=== PATIENT | male | born 1970 | race Caucasian/White ===

== ENCOUNTER → 2020-11-28 | Outpatient (CLI) | payer BC ==
[2020-11-28 13:23] LABS: Basophils % (A) 1 %; Eosinophils # (A) 0.1 k/uL (0-0.7); Eosinophils % (A) 2 %; HCT 50.5 % (39.0-53.0); HGB 16.6 gm/dL (13.0-17.5); Lymphocytes # (A) 1.3 k/uL (1.0-4.8); Lymphocytes % (A) 24 %; MCH 31.8 pg (25.0-35.0); MCHC 32.9 g/dL (31.0-37.0); MCV 96.7 fL (80.0-100.0); Mean Platelet Volume 8.7; Monocytes # (A) 0.4 k/uL (0-1.0); Monocytes % (A) 7 %; Neutrophils # (A) 3.7 k/uL (1.3-7.7); Neutrophils % (A) 65 %; Platelet Count 184 k/uL (150-450); RBC 5.23 m/uL (4.30-5.90); RDW 13.5 % (11.5-15.5); WBC 5.7 k/uL (3.8-10.6)
[2020-11-28 14:58] LABS: Erythrocyte Sedimentation Rate 2 mm/hr (0-15)
[2020-11-28 20:54] LABS: ALT 33 U/L (10-49); AST 22 U/L (14-35); Albumin/Globulin Ratio 2.53 (1.60-3.17); Alkaline Phosphatase 47 U/L (41-126); C Reactive Protein <0.4 mg/dL (0.0-0.8); Calcium 9.7 mg/dL (8.7-10.3); Carbon Dioxide 28.5 mmol/L (21.6-31.8); Chloride 105 mmol/L (96-109); Chol/HDL Ratio 4.11; Cholesterol 255 mg/dL (0-200); Globulin 1.9 g/dL (1.6-3.3); Glucose 95 mg/dL (70-110); LDL Cholesterol,Calculated 176.2 mg/dL (0.0-131.0); PSA Annual Screen 1.2 ng/mL (0.0-4.0); Potassium 4.6 mmol/L (3.5-5.5); Rheumatoid Factor, Qnt <4 IU/mL (0-15); Sodium 142 mmol/L (135-145); Total Protein 6.7 g/dL (6.2-8.2); Uric Acid 5.6 mg/dL (3.7-8.7)
[2020-11-28 20:55] LABS: Hemoglobin A1C 5.2 % (4.0-6.0)
== END | disposition home or self-care (01) ==
LOC: LABWHC1 12:06
PROVIDERS: ATTEND Family Medicine
DX: Z00.00 Encounter for general adult medical examination without abnormal findings (principal); M25.50 Pain in unspecified joint; Z12.5 Encounter for screening for malignant neoplasm of prostate
CPT/HCPCS: 80061; 80053; 85652; 84443; 84550; 85025; 86140; 86431; 86038; 83036; 36415; G0103

== ENCOUNTER → 2021-02-17 | Outpatient (CLI) | payer BC ==
--- NOTE | 2021-02-17 17:19 | CT ---
EXAMINATION TYPE: CT chest angio for PE DATE OF EXAM: 02/17/2021 COMPARISON: None HISTORY: Elevated d-dimer, difficulty breathing and fatigue. Hx of covid CT DLP: 420.2 mGycm Automated exposure control for dose reduction was used. CONTRAST: Performed with IV Contrast, patient injected with 100ml mL of Isovue 370. There are 3-D post processed images. The lungs are clear of consolidation. There is no evidence of a pulmonary mass. There is no pleural e ffusion. There is no pericardial effusion. The upper abdominal soft tissues are intact. There is 2 cm rounded hypodensity in the superior right lobe of the liver that could be a cyst. There is no mediastinal adenopathy. There are no hilar masses. Thoracic aorta is intact. There is no aneurysm or dissection. Ascending aorta measures 3.6 cm. There is normal contrast opacification of the pulmonary arteries. There are no filling defects. The t horacic spine is intact. There is no compression fracture. Sternum is intact. The ribs are intact. IMPRESSION: No evidence of pulmonary embolism. Negative exam. Hypodense rounded focus in the liver could be a cyst.
== END | disposition home or self-care (01) ==
LOC: RADCTMAIN 16:30
PROVIDERS: ATTEND Family Medicine
DX: R79.1 Abnormal coagulation profile (principal); R93.2 Abnormal findings on diagnostic imaging of liver and biliary tract; Z86.16 Personal history of COVID-19
CPT/HCPCS: 71275; Q9967

== ENCOUNTER → 2021-02-20 | Outpatient (CLI) | payer BC ==
--- NOTE | 2021-02-21 07:43 | ECHOF ---
Referral Reason:R55 syncope and collapse MEASUREMENTS -------- HEIGHT: 182.9 cm WEIGHT: 93.0 kg BP: RVIDd: 3.2 cm (< 3.3) IVSd: 1.1 cm (0.6 - 1.1) LVIDd: 4.3 cm (3.9 - 5.3) LVPWd: 1.1 cm (0.6 - 1.1) IVSs: 1.4 cm LVIDs: 2.9 cm LVPWs: 1.6 cm LA Diam: 4.1 cm (2.7 - 3.8) LAESV Index (A-L): 25.05 ml/m Ao Diam: 3.3 cm (2.0 - 3.7) AV Cusp: 2.6 cm (1.5 - 2.6) LA Diam: 4.2 cm (2.7 - 3.8) MV EXCURSION: 23.948 mm (> 18.000) MV EF SLOPE: 44 mm/s (70 - 150) EPSS: 0.3 cm MV E Erick: 0.46 m/s MV DecT: 346 ms MV A Erick: 0.66 m/s MV E/A Ratio: 0.71 RAP: 5.00 mmHg RVSP: 27.28 mmHg FINDINGS -------- Sinus rhythm. This was a technically good study. LV size, wall thickness and systolic function are normal, with an EF greater than 55%. The left olamide tricular size is normal. The right ventricle is normal in size. Normal LA size by volume 22+/-6 ml/m2. The right atrial size is normal. The aortic valve is trileaflet, and appears structurally normal. No aortic stenosis or regurgitation. Mild mitral regurgitation is present. Mild tricuspid regurgitation present. Right ventricular systolic pressure is normal at < 35 mmHg. There is no pulmonic regurgitation present. The aortic root size is normal. There is no pericardial effusion. CONCLUSIONS -------- 1. LV size, wall thickness and systolic function are normal, with an EF greater than 55%. 2. The left ventricular size is normal. 3. The right ventricle is normal in size. 4. Normal LA size by volume 22+/-6 ml/m2. 5. The right atrial size is normal. 6. Mild mitral regurgitation is present. 7. Mild tricuspid regurgitation present. 8. The aortic root size is normal. 9. There is no pericardial effusion. FLOOD CONTROL ENGINEER: Belen Doherty RDCS
== END | disposition home or self-care (01) ==
LOC: RADECHMAIN 13:52
PROVIDERS: ATTEND Family Medicine
DX: R55 Syncope and collapse (principal)
CPT/HCPCS: 93306

== ENCOUNTER 2021-03-24 09:07 | Day surgery (SDC) | payer BC ==
[2021-03-21 09:34] VITALS: BMI 27.8
[~2021-03-24 09:07] MED LIST: LACTATED RINGERS 1,000 ML IV SCH
[2021-03-24 09:42] VITALS: TEMP 97.1
[2021-03-24] MEDS ORDERED: PROPOFOL 10 MG/ML 20 ML VIAL IV ONE (10:06)
[2021-03-24 10:40] VITALS: RESP 16
--- NOTE | 2021-03-24 10:40 | P.PCN ---
Date of Procedure: 03/24/21 Description of Procedure: Brief history: Patient is a pleasant 51-year-old male presenting for outpatient EGD and colonoscopy for evaluation of GERD with esophagitis and screening for malignant neoplasm of the colon. Patient reports history of long-standing heartburn and gastroesophageal reflux disease. He treats his symptoms with Zegerid. No prior EGD. Last colonoscopy performed remotely over 20 years ago for unclear reasons. No family history of colon cancer. No change in bowel habits. Procedure performed: Esophagogastroduodenoscopy with biopsy Colonoscopy Estimated blood loss: Minimal. Preoperative diagnosis: Gastroesophageal reflux disease with esophagitis, screening for malignant neoplasm of the colon, last colonoscopy over 20 years ago Anesthesia: MAC Procedure: After informed consent was obtained from the patient was brought into the endoscopy unit and IV sedation was administered by anesthesia under continuous monitoring. Initially upper endoscopy was done. The Olympus GF 190 video endoscope was inserted into the mouth and esophagus intubated without any difficulty and was gradually advanced into the stomach and duodenum and carefully examined. The bulb and second part of the duodenum appeared normal, with biopsies taken. The scope was then withdrawn into the stomach adequately insufflated with air and upon careful examination the antrum and body, cardia and fundus appeared normal, except for some mild scattered erythema in the antrum and body suggestive of mild gastritis with biopsies of the antrum body taken. The scope was then withdrawn into the esophagus. The GE junction was located at 39 cm to the incisors. A small 1 cm hiatal hernia was noted. It appeared regular with no erythema erosions or ulcerations, with biopsies of the lower esophagus taken. Rest of the esophagus appeared normal. Patient tolerated the procedure well. At this time the patient continued to remain sedation. Initial digital rectal examination was normal. Olympus CF 190 video colonoscope was then inserted into the rectum and gradually advanced to the cecum without any difficulty. Careful examination was performed as the scope was gradually being withdrawn. The prep was excellent. The cecum, ascending colon, transverse colon, descending colon, sigmoid colon and rectum appeared normal. Retroflexion was performed in the rectum and no lesions were noted, with low-grade internal hemorrhoids noted. Patient tolerated the procedure well. Impression: 1. Mild gastritis. Biopsies of the duodenum, antrum and body and lower esophagus. 2. Normal-appearing colon from rectum to cecum with normal-appearing. Internal hemorrhoids. Recommendations: Findings of this examination were discussed with the patient as well as his family. Okay to resume diet. Okay to resume medications. Continue PPI therapy for symptoms of reflux. Recommend repeat colonoscopy in 10 years for screening for malignant neoplasm of the colon or sooner if any signs or symptoms which warrant further evaluation develop.
[2021-03-24 11:02] VITALS: BP 121/79; PULSE 69
== END 2021-03-24 11:35 | disposition home or self-care (01) ==
LOC: ORWHC2ENDO 09:07
PROVIDERS: ATTEND Internal Medicine
DX: K29.50 Unspecified chronic gastritis without bleeding (principal); K21.9 Gastro-esophageal reflux disease without esophagitis; K44.9 Diaphragmatic hernia without obstruction or gangrene; Z12.11 Encounter for screening for malignant neoplasm of colon; K64.8 Other hemorrhoids; I10 Essential (primary) hypertension; E78.5 Hyperlipidemia, unspecified; Z79.899 Other long term (current) drug therapy
CPT/HCPCS: 88305; 43239; J2704; G0121

== ENCOUNTER 2021-06-18 07:19 | Emergency (ER) | payer BC ==
[2021-06-18 07:23] VITALS: TEMP 97.9
[2021-06-18] MEDS ORDERED: KETOROLAC 15 MG/ML 1 ML VIAL IVP STA (07:35)
[2021-06-18] MEDS ORDERED: SODIUM CHLORIDE 0.9% 1,000 ML IV STA ×2 (07:35)
--- NOTE | 2021-06-18 07:42 | ED ---
Male Urogenital HPI - General Chief complaint: Urogenital Stated complaint: abd & back pain Time Seen by Provider: 06/18/21 07:22 Source: patient, RN notes reviewed Mode of arrival: ambulatory Limitations: no limitations - History of Present Illness Initial comments: This is a 51-year-old male with a benign past medical history other than a previous episode of kidney stone many years ago on the right side who states he had the sudden onset this morning is sharp 10/10 flank pain and radiates around to the from his abdomen. He states he felt a little off last night when he went to work he did have some diarrhea this morning. No fevers chills or sweats no dysuria no hematuria. No cough or phlegm production the patient states he can't get comfortable. No genital pain. No other complaints or modifying factors - Related Data Home Medications Medication Instructions Recorded Confirmed Meloxicam [Mobic] 15 mg PO DAILY 06/18/21 06/18/21 Sertraline [Zoloft] 100 mg PO DAILY 06/18/21 06/18/21 armodafiniL [Armodafinil] 250 mg PO DAILY PRN 06/18/21 06/18/21 valACYclovir HCL [Valtrex] 500 mg PO DAILY 06/18/21 06/18/21 Previous Rx's Medication Instructions Recorded Ibuprofen 800 mg PO Q6HR PRN #20 tablet 06/18/21 Tamsulosin [Flomax] 0.4 mg PO DAILY #7 cap 06/18/21 Allergies Allergy/AdvReac Type Severity Reaction Status Date / Time Fish Containing Products Allergy Severe Anaphylaxis Verified 06/18/21 07:58 [Fish] Review of Systems ROS Statement: Those systems with pertinent positive or pertinent negative responses have been documented in the HPI. ROS Other: All systems not noted in ROS Statement are negative. Past Medical History Past Medical History: GERD/Reflux, Hyperlipidemia, Hypertension Additional Past Medical History / Comment(s): Hx CoVid 09/27, kidney stone History of Any Multi-Drug Resistant Organisms: None Reported Past Surgical History: Orthopedic Surgery Additional Past Surgical History / Comment(s): Left shoulder surgery. Past Anesthesia/Blood Transfusion Reactions: No Reported Reaction, Motion Sickness Past Psychological History: No Psychological Hx Reported Smoking Status: Former smoker Past Alcohol Use History: Occasional Past Drug Use History: None Reported - Past Family History Mother Family Medical History: No Reported History General Exam - General Exam Comments Initial Comments: This a well-developed well-nourished awake alert oriented times 3 male Limitations: no limitations General appearance: alert, anxious Head exam: Present: atraumatic, normocephalic, normal inspection Eye exam: Present: normal appearance, PERRL, EOMI. Absent: scleral icterus, conjunctival injection, periorbital swelling ENT exam: Present: normal exam, mucous membranes moist Neck exam: Present: normal inspection. Absent: tenderness, meningismus, lymphadenopathy Respiratory exam: Present: normal lung sounds bilaterally. Absent: respiratory distress, wheezes, rales, rhonchi, stridor Cardiovascular Exam: Present: regular rate, normal rhythm, normal heart sounds. Absent: systolic murmur, diastolic murmur, rubs, gallop, clicks GI/Abdominal exam: Present: soft, normal bowel sounds. Absent: distended, tenderness, guarding, rebound, rigid, bruit, pulsatile mass Rectal exam: Present: deferred exam: Present: normal inspection, circumcision Extremities exam: Present: normal inspection, full ROM, normal capillary refill. Absent: tenderness, pedal edema, joint swelling, calf tenderness Back exam: Present: normal inspection, full ROM. Absent: tenderness, CVA tenderness (R), CVA tenderness (L) Neurological exam: Present: alert, oriented X3, CN II-XII intact Psychiatric exam: Present: normal affect, normal mood Skin exam: Present: warm, dry, intact, normal color. Absent: rash Course Vital Signs 06/18/21 06/18/21 07:21 11:23 Temperature 97.9 F Pulse Rate 61 60 Respiratory 18 20 Rate Blood Pressure 174/122 138/98 O2 Sat by Pulse 98 98 Oximetry - Reevaluation(s) Reevaluation #1: 06/18/21 08:15 Reevaluation patient reveals his pain is improved from a 10/10 to a 2/10 lab work and x-ray evaluation pending Medical Decision Making - Medical Decision Making The patient finally get some pain relief and will be discharged I did discuss case with Dr. Ivey, patient will be discharged to follow-up in 2 days in the office and return if any problems. Appropriate medication will be prescribed. - Lab Data Result diagrams: 06/18/21 07:50 06/18/21 07:50 Lab Results 06/18/21 06/18/21 06/18/21 Range/Units 07:48 07:50 07:50 WBC 7.7 (3.8-10.6) k/uL RBC 5.11 (4.30-5.90) m/uL Hgb 17.3 (13.0-17.5) gm/dL Hct 50.1 (39.0-53.0) % MCV 98.1 (80.0-100.0) fL MCH 33.9 (25.0-35.0) pg MCHC 34.5 (31.0-37.0) g/dL RDW 12.9 (11.5-15.5) % Plt Count 210 (150-450) k/uL MPV 8.6 Neutrophils % 66 % Lymphocytes % 22 % Monocytes % 7 % Eosinophils % 3 % Basophils % 1 % Neutrophils # 5.1 (1.3-7.7) k/uL Lymphocytes # 1.7 (1.0-4.8) k/uL Monocytes # 0.5 (0-1.0) k/uL Eosinophils # 0.2 (0-0.7) k/uL Basophils # 0.1 (0-0.2) k/uL Sodium 138 (137-145) mmol/L Potassium 4.7 (3.5-5.1) mmol/L Chloride 101 (98-107) mmol/L Carbon Dioxide 27 (22-30) mmol/L Anion Gap 10 mmol/L BUN 21 H (9-20) mg/dL Creatinine 1.07 (0.66-1.25) mg/dL Est GFR (CKD-EPI)AfAm >90 (>60 ml/min/1.73 sqM) Est GFR (CKD-EPI)NonAf 81 (>60 ml/min/1.73 sqM) Glucose 111 H (74-99) mg/dL Calcium 9.7 (8.4-10.2) mg/dL Total Bilirubin 0.6 (0.2-1.3) mg/dL AST 28 (17-59) U/L ALT 21 (4-49) U/L Alkaline Phosphatase 81 (38-126) U/L Creatine Kinase 83 (55-170) U/L Troponin I (0.000-0.034) ng/mL Total Protein 7.3 (6.3-8.2) g/dL Albumin 4.6 (3.5-5.0) g/dL Amylase 54 (30-110) U/L Lipase 127 (23-300) U/L Urine Color Yellow Urine Appearance Turbid (Clear) Urine pH 7.5 (5.0-8.0) Ur Specific [place] 1.018 (1.001-1.035) Urine Protein Negative (Negative) Urine Glucose (UA) Negative (Negative) Urine Ketones Negative (Negative) Urine Blood Trace H (Negative) Urine Nitrite Negative (Negative) Urine Bilirubin Negative (Negative) Urine Urobilinogen <2.0 (<2.0) mg/dL Ur Leukocyte Esterase Negative (Negative) Urine RBC 36 H (0-5) /hpf Urine WBC 1 (0-5) /hpf Amorphous Sediment Occasional H (None) /hpf 06/18/21 Range/Units 07:50 WBC (3.8-10.6) k/uL RBC (4.30-5.90) m/uL Hgb (13.0-17.5) gm/dL Hct (39.0-53.0) % MCV (80.0-100.0) fL MCH (25.0-35.0) pg MCHC (31.0-37.0) g/dL RDW (11.5-15.5) % Plt Count (150-450) k/uL MPV Neutrophils % % Lymphocytes % % Monocytes % % Eosinophils % % Basophils % % Neutrophils # (1.3-7.7) k/uL Lymphocytes # (1.0-4.8) k/uL Monocytes # (0-1.0) k/uL Eosinophils # (0-0.7) k/uL Basophils # (0-0.2) k/uL Sodium (137-145) mmol/L Potassium (3.5-5.1) mmol/L Chloride (98-107) mmol/L Carbon Dioxide (22-30) mmol/L Anion Gap mmol/L BUN (9-20) mg/dL Creatinine (0.66-1.25) mg/dL Est GFR (CKD-EPI)AfAm (>60 ml/min/1.73 sqM) Est GFR (CKD-EPI)NonAf (>60 ml/min/1.73 sqM) Glucose (74-99) mg/dL Calcium (8.4-10.2) mg/dL Total Bilirubin (0.2-1.3) mg/dL AST (17-59) U/L ALT (4-49) U/L Alkaline Phosphatase (38-126) U/L Creatine Kinase (55-170) U/L Troponin I <0.012 (0.000-0.034) ng/mL Total Protein (6.3-8.2) g/dL Albumin (3.5-5.0) g/dL Amylase (30-110) U/L Lipase (23-300) U/L Urine Color Urine Appearance (Clear) Urine pH (5.0-8.0) Ur Specific [place] (1.001-1.035) Urine Protein (Negative) Urine Glucose (UA) (Negative) Urine Ketones (Negative) Urine Blood (Negative) Urine Nitrite (Negative) Urine Bilirubin (Negative) Urine Urobilinogen (<2.0) mg/dL Ur Leukocyte Esterase (Negative) Urine RBC (0-5) /hpf Urine WBC (0-5) /hpf Amorphous Sediment (None) /hpf - Radiology Data Radiology results: report reviewed (Imaging reviewed KUB unremarkable with some pelvic calcifications noted CAT scan didn't show however a 5 mm ureterolithiasis in the distal left ureter with [id number] ureter and evidence of susy-nephric fluid collection.), image reviewed Disposition Clinical Impression: Renal colic on left side, Kidney stone on left side, Hematuria Disposition: HOME SELF-CARE Condition: Good Instructions (If sedation given, give patient instructions): Kidney Stones (ED), Renal Colic (ED), Flank Pain (ED), How to Strain Your Urine (ED) Additional Instructions: [place] 7.5/325 #12 with this vague 1 every 6 hours when necessary pain Prescriptions: Tamsulosin [Flomax] 0.4 mg PO DAILY #7 cap Ibuprofen 800 mg PO Q6HR PRN #20 tablet PRN Reason: Pain Is patient prescribed a controlled substance at d/c from ED?: No Referrals: Jayden Ontiveros MD [Primary Care Provider] - 1-2 days
[2021-06-18 08:00] LABS: Basophils # (A) 0.1 k/uL (0-0.2); Basophils % (A) 1 %; Eosinophils # (A) 0.2 k/uL (0-0.7); Eosinophils % (A) 3 %; HCT 50.1 % (39.0-53.0); HGB 17.3 gm/dL (13.0-17.5); Lymphocytes # (A) 1.7 k/uL (1.0-4.8); Lymphocytes % (A) 22 %; MCH 33.9 pg (25.0-35.0); MCHC 34.5 g/dL (31.0-37.0); MCV 98.1 fL (80.0-100.0); Mean Platelet Volume 8.6; Monocytes # (A) 0.5 k/uL (0-1.0); Monocytes % (A) 7 %; Neutrophils # (A) 5.1 k/uL (1.3-7.7); Neutrophils % (A) 66 %; Platelet Count 210 k/uL (150-450); RBC 5.11 m/uL (4.30-5.90); RDW 12.9 % (11.5-15.5); WBC 7.7 k/uL (3.8-10.6)
[2021-06-18 08:15] LABS: ALT 21 U/L (4-49); AST 28 U/L (17-59); African American GFR (CKD) >90 (>60 ml/min/1.73 sqM); Albumin 4.6 g/dL (3.5-5.0); Alkaline Phosphatase 81 U/L (38-126); Amylase 54 U/L (30-110); Anion Gap 10 mmol/L; Blood Urea Nitrogen 21 mg/dL (9-20); Calcium 9.7 mg/dL (8.4-10.2); Carbon Dioxide 27 mmol/L (22-30); Chloride 101 mmol/L (98-107); Creatine Kinase 83 U/L (55-170); Glucose 111 mg/dL (74-99); Lipase 127 U/L (23-300); Non-African American GFR(CKD) 81 (>60 ml/min/1.73 sqM); Potassium 4.7 mmol/L (3.5-5.1); Sodium 138 mmol/L (137-145); Total Bilirubin 0.6 mg/dL (0.2-1.3); Total Protein 7.3 g/dL (6.3-8.2)
--- NOTE | 2021-06-18 08:22 | XR ---
KUB HISTORY: Abdominal pain Frontal KUB submitted on 2 images, no comparisons Lung bases are clear. There is no evident bowel obstruction or pneumoperitoneum. There is a slight sp inal curvature. Probable phleboliths are noted within the pelvis. Difficult to exclude a distal left ureteral calculus. Bone mineralization is normal. IMPRESSION: Indeterminate calcifications in the pelvis. Nonobstructive bowel gas pattern.
[2021-06-18 08:27] LABS: Amorphous Sediment,Urine Occasional /hpf; Appearance,Urine Turbid (Clear); Bilirubin,Urine Negative (Negative); Blood,Urine Trace (Negative); Color,Urine Yellow; Glucose,Urine (UA) Negative (Negative); Ketones,Urine Negative (Negative); Leukocyte Esterase,Urine Negative (Negative); Nitrite,Urine Negative (Negative); PH, Urine 7.5 (5.0-8.0); Protein,Urine Negative (Negative); RBC,Urine 36 /hpf (0-5); Specific Gravity,Urine 1.018 (1.001-1.035); Urobilinogen,Urine <2.0 mg/dL (<2.0); WBC,Urine 1 /hpf (0-5)
[2021-06-18] MEDS ORDERED: HYDROmorphone 1 MG/ML 1 ML SYRINGE IVP STA (08:33)
[2021-06-18] MEDS ORDERED: MORPHINE SULFATE 4 MG/ML SYRINGE IVP STA ×2 (09:26→11:18)
[2021-06-18] MEDS ORDERED: TAMSULOSIN 0.4 MG CAP.ER.24H PO STA (09:27)
--- NOTE | 2021-06-18 09:43 | CT ---
EXAMINATION TYPE: CT abdomen pelvis wo con DATE OF EXAM: 06/18/2021 COMPARISON: KUB same date HISTORY: Flank pain, kidney stones suspected CT DLP: 725 mGycm Automated exposure control for dose reduction was used. TECHNIQUE: Helical acquisition of images from the lung bases through the pelvis. FINDINGS: Small hiatal hernia may be present. LUNG BASES: No significant abnormality is appreciated. AORTA: No significant abnormality is appreciataed. LIVER/GB: Low dense focus at the dome of the liver measures 2.1 cm and likely represents a cyst. PANCREAS: No significant abnormality is seen. SPLEEN: No significant abnormality is seen. ADRENALS: No significant abnormality is seen. KIDNEYS: There is left-sided hydronephrosis and hydroureter. Distal left ureteral calculus is present measuring partly 5 mm. There is perinephric fluid present possibly due to forniceal rupture. Right k idney is within normal limits. REPRODUCTIVE ORGANS: No significant abnormality is seen. URINARY BLADDER: Thickening of urinary bladder wall may be due to lack of distention.. BOWEL: No significant abnormality is seen. Appendix is normal. FREE AIR: No Free Air is visible. ASCITES: None visible. PELVIC ADENOPATHY: None visualized. RETROPERITONEAL ADENOPATHY: No Retroperitoneal Adenopathy visible. OSSEOUS STRUCTURES: Bilateral spondylolysis at L5.. IMPRESSION: DISTAL LEFT URETERAL CALCULUS IS OBSTRUCTIVE WITH HYDRONEPHROSIS. NONCONTRAST EXAM.
[2021-06-18 11:23] VITALS: RESP 20
[2021-06-18 12:36] VITALS: BP 152/98; PULSE 59
== END 2021-06-18 12:36 | disposition home or self-care (01) ==
LOC: EC 07:19
DX: N20.0 Calculus of kidney (principal); K21.9 Gastro-esophageal reflux disease without esophagitis; E78.5 Hyperlipidemia, unspecified; I10 Essential (primary) hypertension; Z86.16 Personal history of COVID-19; Z87.891 Personal history of nicotine dependence; Z91.013 Allergy to seafood
CPT/HCPCS: 99284; 96374; 96375 ×2; 96376; 96361; 36415; 80053; 82150; 82550; 83690; 84484; 85025; 81001; 74018; 74176; J2270; J1170; J1885

== ENCOUNTER 2021-06-21 09:45 | Emergency (ER) | payer BC ==
[2021-06-21 09:48] VITALS: RESP 18
[2021-06-21] MEDS ORDERED: KETOROLAC 15 MG/ML 1 ML VIAL IVP STA (09:54)
[2021-06-21] MEDS ORDERED: HYDROmorphone 0.5 MG/0.5 ML SYRINGE IVP STA (09:54)
[2021-06-21] MEDS ORDERED: SODIUM CHLORIDE 0.9% 1,000 ML IV STA (09:54)
[2021-06-21] MEDS ORDERED: ONDANSETRON 4 MG/2 ML VIAL IVP STA (09:56)
--- NOTE | 2021-06-21 09:57 | ED ---
General Adult HPI - General Chief complaint: Abdominal Pain Stated complaint: revisit -kidney stone Time Seen by Provider: 06/21/21 09:46 Source: patient Mode of arrival: wheelchair Limitations: no limitations - History of Present Illness Initial comments: Dictation was produced using [employer] dictation software. please excuse any grammatical, word or spelling errors. Chief Complaint: 51-year-old male presents to the emergency department for persistent sided flank pain History of Present Illness: 51-year-old male who presents today with severe left-sided flank pain. Patient was seen here 3 days ago. He was diagnosed with 5 mm left-sided nephrolithiasis with hydronephrosis. Patient was discharged then with pain medications. He was told to follow-up with urology. Patient followed-up with Dr. Marks in the office and patient is scheduled to have shockwave lithotripsy on Wednesday. Patient states that his symptoms were relat ively mild yesterday however today became much more severe. Patient complains of significant nausea. The ROS documented in this emergency department record has been reviewed and confirmed by me. Those systems with pertinent positive or negative responses have been documented in the HPI. All other systems are other negative and/or noncontributory. PHYSICAL EXAM: General Impression: Alert and oriented x3, acute distress secondary to pain HEENT: Normocephalic atraumatic, extra-ocular movements intact, pupils equal and reactive to light bilaterally, mucous membranes moist. Cardiovascular: Heart regular rate and rhythm Chest: Able to complete full sentences, no retractions, no tachypnea Abdomen: abdomen soft, non-tender, non-distended, no organomegaly Musculoskeletal: Pulses present and equal in all extremities, no peripheral edema Motor: no focal deficits noted Neurological: CN II-XII grossly intact, no focal motor or sensory deficits noted Skin: Intact with no visualized rashes Psych: Normal affect and mood ED course: 51-year-old male presents to emergency department with severe nephrolithiasis. Vital signs upon arrival are within acceptable limits. Laboratory evaluation obtained CBC unremarkable. Metabolic panel shows creatinine 1.43. Urinalysis shows 1+ ketones. X-ray unable to visualize a stone. No other acute processes noted. Patient given IV fluids and analgesics. He is observed in emergency department for 3 hours. He is reevaluated at bedside at 12:45 PM Klonopin stable medical condition. Discussed disposition options with patient. He would prefer to be discharge. Patient given prescription for by mouth analgesics, Colace and antiemetics. He is advised to follow-up with urologist. - Related Data Home Medications Medication Instructions Recorded Confirmed Meloxicam [Mobic] 15 mg PO DAILY 06/18/21 06/20/21 Sertraline [Zoloft] 100 mg PO DAILY 06/18/21 06/20/21 valACYclovir HCL [Valtrex] 500 mg PO DAILY 06/18/21 06/20/21 Previous Rx's Medication Instructions Recorded Ibuprofen 800 mg PO Q6HR PRN #20 tablet 06/18/21 Tamsulosin [Flomax] 0.4 mg PO DAILY #7 cap 06/18/21 Docusate [Colace] 100 mg PO DAILY 12 Days #12 capsule 06/21/21 Morphine Sulfate Ir [MSIR] 15 mg PO Q6HR PRN 3 Days #12 tab 06/21/21 Ondansetron Odt [Zofran Odt] 4 mg PO Q8HR PRN #12 tab 06/21/21 Allergies Allergy/AdvReac Type Severity Reaction Status Date / Time Fish Containing Products Allergy Severe Anaphylaxis Verified 06/21/21 09:48 [Fish] Review of Systems ROS Statement: Those systems with pertinent positive or pertinent negative responses have been documented in the HPI. ROS Other: All systems not noted in ROS Statement are negative. Past Medical History Past Medical History: GERD/Reflux, Hyperlipidemia, Hypertension Additional Past Medical History / Comment(s): Hx CoVid 09/27, kidney stone. History of Any Multi-Drug Resistant Organisms: None Reported Past Surgical History: Orthopedic Surgery Additional Past Surgical History / Comment(s): Left shoulder surgery. Past Anesthesia/Blood Transfusion Reactions: No Reported Reaction, Motion Sickness Past Psychological History: No Psychological Hx Reported Smoking Status: Former smoker Past Alcohol Use History: Occasional Past Drug Use History: None Reported - Past Family History Mother Family Medical History: No Reported History General Exam Limitations: no limitations Course Vital Signs 06/21/21 06/21/21 09:46 11:31 Temperature 97.8 F 98.4 F Pulse Rate 69 76 Respiratory 18 18 Rate Blood Pressure 175/124 141/89 O2 Sat by Pulse 98 95 Oximetry Medical Decision Making - Lab Data Result diagrams: 06/21/21 09:57 06/21/21 09:57 Lab Results 06/21/21 06/21/21 06/21/21 Range/Units 09:57 09:57 09:57 WBC 10.2 (3.8-10.6) k/uL RBC 4.76 (4.30-5.90) m/uL Hgb 15.9 (13.0-17.5) gm/dL Hct 46.4 (39.0-53.0) % MCV 97.4 (80.0-100.0) fL MCH 33.5 (25.0-35.0) pg MCHC 34.3 (31.0-37.0) g/dL RDW 13.2 (11.5-15.5) % Plt Count 191 (150-450) k/uL MPV 8.3 Neutrophils % 81 % Lymphocytes % 9 % Monocytes % 6 % Eosinophils % 1 % Basophils % 0 % Neutrophils # 8.3 H (1.3-7.7) k/uL Lymphocytes # 0.9 L (1.0-4.8) k/uL Monocytes # 0.6 (0-1.0) k/uL Eosinophils # 0.1 (0-0.7) k/uL Basophils # 0.0 (0-0.2) k/uL Sodium 137 (137-145) mmol/L Potassium 4.4 (3.5-5.1) mmol/L Chloride 104 (98-107) mmol/L Carbon Dioxide 26 (22-30) mmol/L Anion Gap 7 mmol/L BUN 18 (9-20) mg/dL Creatinine 1.43 H (0.66-1.25) mg/dL Est GFR (CKD-EPI)AfAm 66 (>60 ml/min/1.73 sqM) Est GFR (CKD-EPI)NonAf 57 (>60 ml/min/1.73 sqM) Glucose 125 H (74-99) mg/dL Calcium 9.7 (8.4-10.2) mg/dL Urine Color Yellow Urine Appearance Clear (Clear) Urine pH 5.0 (5.0-8.0) Ur Specific [place] 1.016 (1.001-1.035) Urine Protein Negative (Negative) Urine Glucose (UA) Negative (Negative) Urine Ketones 1+ H (Negative) Urine Blood Moderate H (Negative) Urine Nitrite Negative (Negative) Urine Bilirubin Negative (Negative) Urine Urobilinogen <2.0 (<2.0) mg/dL Ur Leukocyte Esterase Trace H (Negative) Urine RBC 5 (0-5) /hpf Urine WBC 4 (0-5) /hpf Urine Mucus Rare H (None) /hpf Disposition Clinical Impression: Kidney stone Disposition: HOME SELF-CARE Condition: Fair Instructions (If sedation given, give patient instructions): Kidney Stones (ED) Prescriptions: Docusate [Colace] 100 mg PO DAILY 12 Days #12 capsule Morphine Sulfate Ir [MSIR] 15 mg PO Q6HR PRN 3 Days #12 tab PRN Reason: Severe Pain Ondansetron Odt [Zofran Odt] 4 mg PO Q8HR PRN #12 tab PRN Reason: Nausea Is patient prescribed a controlled substance at d/c from ED?: Yes If prescribed controlled substance>3 days was MAPS reviewed?: Prescribed <3 Days Referrals: Santiago Marks MD [STAFF PHYSICIAN] - 1-2 days
[2021-06-21] MEDS ORDERED: MORPHINE SULFATE 4 MG/ML SYRINGE IVP STA (10:04)
[2021-06-21 10:21] LABS: Basophils % (A) 0 %; Eosinophils # (A) 0.1 k/uL (0-0.7); Eosinophils % (A) 1 %; HCT 46.4 % (39.0-53.0); HGB 15.9 gm/dL (13.0-17.5); Lymphocytes # (A) 0.9 k/uL (1.0-4.8); Lymphocytes % (A) 9 %; MCH 33.5 pg (25.0-35.0); MCHC 34.3 g/dL (31.0-37.0); MCV 97.4 fL (80.0-100.0); Mean Platelet Volume 8.3; Monocytes # (A) 0.6 k/uL (0-1.0); Monocytes % (A) 6 %; Neutrophils # (A) 8.3 k/uL (1.3-7.7); Neutrophils % (A) 81 %; Platelet Count 191 k/uL (150-450); RBC 4.76 m/uL (4.30-5.90); RDW 13.2 % (11.5-15.5); WBC 10.2 k/uL (3.8-10.6)
[2021-06-21 10:31] LABS: Calcium 9.7 mg/dL (8.4-10.2); Potassium 4.4 mmol/L (3.5-5.1)
--- NOTE | 2021-06-21 10:35 | XR ---
EXAMINATION TYPE: XR abdomen 1V DATE OF EXAM: 06/21/2021 Comparison: 06/18/2021 Clinical History: 51 year-old male left flank pain, kidney stone Findings: Nonobstructive bowel gas pattern. No evidence for free air. Mild stool burden. The 5 mm distal left u reteral calculus seen on recent CT is not radiographically apparent. Some platelets in the right side of the pelvis. Impression: The 5 mm distal left ureteral calculus seen on the 06/18/2021 CT is not radiographically apparent. Alan e phleboliths in the right side of the pelvis.
[2021-06-21 11:33] VITALS: TEMP 98.4
[2021-06-21 12:38] LABS: Appearance,Urine Clear (Clear); Bilirubin,Urine Negative (Negative); Blood,Urine Moderate (Negative); Color,Urine Yellow; Glucose,Urine (UA) Negative (Negative); Ketones,Urine 1+ (Negative); Leukocyte Esterase,Urine Trace (Negative); Mucus,Urine Rare /hpf; Nitrite,Urine Negative (Negative); Protein,Urine Negative (Negative); RBC,Urine 5 /hpf (0-5); Specific Gravity,Urine 1.016 (1.001-1.035); Urobilinogen,Urine <2.0 mg/dL (<2.0); WBC,Urine 4 /hpf (0-5)
[2021-06-21 13:03] VITALS: BP 138/70; PULSE 71
== END 2021-06-21 12:50 | disposition home or self-care (01) ==
LOC: EC 09:45
DX: N20.0 Calculus of kidney (principal); I10 Essential (primary) hypertension; E78.5 Hyperlipidemia, unspecified; K21.9 Gastro-esophageal reflux disease without esophagitis; Z79.1 Long term (current) use of non-steroidal anti-inflammatories (NSAID); Z79.899 Other long term (current) drug therapy; Z87.891 Personal history of nicotine dependence
CPT/HCPCS: 36415; 80048; 85025; 81001; 74018; 96374; 96375 ×2; 96361; 99284; J2270; J2405; J1885

== ENCOUNTER 2021-06-23 09:43 | Day surgery (SDC) | payer BC ==
[2021-06-20 12:26] VITALS: BMI 27.5
--- NOTE | 2021-06-23 09:08 | P.HPIHPCON ---
History of Present Illness H&P Date: 06/23/21 Chief Complaint: Left flank pain This is a 51-year-old male with history of 5 mm left-sided distal ureteral stone. He is symptomatic from his stone. Discussed with him the option of ESWL versus ureteroscopy. He agreed to proceed with ESWL. Discussed the risk which includes but not limited to bleeding, infection, discussed if the stone cannot be visualized on fluoroscopy and then we may not be able to perform the procedure, at that time he will require ureteroscopy. He understood all the risk and agreed to proceed with left ESWL Consent for Procedure: I have explained the operation/procedure to the patient, including the risks, benefits, side effects, alternative therapies (including not receiving the proposed treatment or service), the likelihood of the patient achieving his/her goals, and potential recuperation problems for the procedure/sedation/analgesia, as well as any blood products, if indicated. I also explained to the patient the risks, benefits and side effects of the alternatives, as well as the risks related to not receiving the proposed procedure, care, treatment, or services. Past Medical History Past Medical History: GERD/Reflux, Hyperlipidemia, Hypertension Additional Past Medical History / Comment(s): Hx CoVid 09/27, kidney stone. History of Any Multi-Drug Resistant Organisms: None Reported Past Surgical History: Orthopedic Surgery Additional Past Surgical History / Comment(s): Left shoulder surgery. Past Anesthesia/Blood Transfusion Reactions: No Reported Reaction, Motion Sickness Past Psychological History: No Psychological Hx Reported Smoking Status: Former smoker Past Alcohol Use History: Occasional Additional Past Alcohol Use History / Comment(s): Quit smoking 24 yrs ago. Past Drug Use History: None Reported - Past Family History Mother Family Medical History: No Reported History Medications and Allergies Home Medications Medication Instructions Recorded Confirmed Type Ibuprofen 800 mg PO Q6HR PRN #20 tablet 06/18/21 06/20/21 Rx Meloxicam [Mobic] 15 mg PO DAILY 06/18/21 06/20/21 History Sertraline [Zoloft] 100 mg PO DAILY 06/18/21 06/20/21 History Tamsulosin [Flomax] 0.4 mg PO DAILY #7 cap 06/18/21 06/20/21 Rx valACYclovir HCL [Valtrex] 500 mg PO DAILY 06/18/21 06/20/21 History Docusate [Colace] 100 mg PO DAILY 12 Days #12 capsule 06/21/21 Rx Morphine Sulfate Ir [MSIR] 15 mg PO Q6HR PRN 3 Days #12 tab 06/21/21 Rx Ondansetron Odt [Zofran Odt] 4 mg PO Q8HR PRN #12 tab 06/21/21 Rx Allergies Allergy/AdvReac Type Severity Reaction Status Date / Time Fish Containing Products Allergy Severe Anaphylaxis Verified 06/21/21 09:48 [Fish] Surgical - Exam - General no distress, moderate pain - ENT normal nares, normal mucosa - Respiratory normal expansion, normal respiratory effort - Psychiatric oriented to time, oriented to person, oriented to place Assessment and Plan Assessment: 51-year-old male with history of distal left ureteral stone Or for left-sided ESWL
[~2021-06-23 09:43] MED LIST changes: +LIDOCAINE 1% (10MG/ML) FOR IV START INTRADERMA PRN
--- NOTE | 2021-06-23 10:19 | XR ---
EXAMINATION TYPE: XR KUB DATE OF EXAM: 06/23/2021 HISTORY: Pain Comparison: 06/18/2021 Single KUB is submitted for interpretation. Findings: Right renal calculi: None Visualized. Right ureteral calculi: None Visualized. Left renal calculi: None Visualized. Left ureteral calculi: None Visualized. Pelvic calcifications: None Visualized. Bowel gas pattern is unremarkable. No free air. No mass effects. IMPRESSION: 1. No visible calculi identified at this time.
[2021-06-23 10:25] VITALS: TEMP 97.7
[2021-06-23] MEDS ORDERED: LACTATED RINGERS 1,000 ML IV ONE (10:33)
[2021-06-23] MEDS ORDERED: ONDANSETRON 4 MG/2 ML VIAL ONE (10:34)
[2021-06-23] MEDS ORDERED: ONDANSETRON 4 MG/2 ML VIAL IVP ONE (10:36)
[2021-06-23] MEDS ORDERED: ceFAZolin 1,000 MG VIAL ONE (11:08)
[2021-06-23] MEDS ORDERED: MIDAZOLAM 2 MG/2 ML VIAL ONE (11:08)
[2021-06-23] MEDS ORDERED: PROPOFOL 10 MG/ML 20 ML VIAL IV ONE (11:08)
[2021-06-23] MEDS ORDERED: SODIUM CHLORIDE 0.9% 100 ML BAG ONE (11:08)
[2021-06-23] MEDS ORDERED: fentaNYL (PF) 50 MCG/ML 2 ML AMP ONE (11:08)
--- NOTE | 2021-06-23 11:50 | P.OP ---
Date of Procedure: 06/23/21 Preoperative Diagnosis: Left ureteral stone Postoperative Diagnosis: Same Procedure(s) Performed: left ESWL Implants: none Anesthesia: MAC Surgeon: Santiago Marks Estimated Blood Loss (ml): 0 Pathology: none sent Condition: stable Disposition: PACU Indications for Procedure: This is a 51-year-old male with history of 5 mm left-sided distal ureteral stone. He is symptomatic from his stone. Discussed with him the option of ESWL versus ureteroscopy. He agreed to proceed with ESWL. Discussed the risk which includes but not limited to bleeding, infection, discussed if the stone cannot be visualized on fluoroscopy and then we may not be able to perform the procedure, at that time he will require ureteroscopy. He understood all the risk and agreed to proceed with left ESWL Operative Findings: Left distal stone Description of Procedure: The patient was taken to the operating room and placed on the Dornier Compact Delta II lithotripter in the supine position. The calculus was seen on biplanar fluoroscopy. Once the patient was properly positioned and sedated, lithotripsy was performed. The energy level was gradually increased per protocol, to an energy level of 6. A total of 3000 shocks were given at a rate of 80 shocks per minute, which was subsquently incresed to 100. Fluoroscopy was utilized at a minimum to ensure proper positioning and determine the treatment status. The calculus changed in appearance, there was good fragmentation. The patient tolerated the procedure well was taken to the recovery room in stable condition. Instructions were given to strain the urine, and the patient will follow-up within one week.
[2021-06-23 12:00] VITALS: RESP 16
[2021-06-23 12:28] VITALS: BP 147/81; PULSE 55
== END 2021-06-23 13:06 | disposition home or self-care (01) ==
LOC: ORWHC2ENDO 09:43
PROVIDERS: ATTEND Urology
DX: N20.1 Calculus of ureter (principal); I10 Essential (primary) hypertension; E78.5 Hyperlipidemia, unspecified; K21.9 Gastro-esophageal reflux disease without esophagitis
CPT/HCPCS: 50590; 82365; 74018; J2250; J2405; J0690; J3010; J2704

== ENCOUNTER → 2023-02-09 | Outpatient (CLI) | payer MEDICAID ==
--- NOTE | 2023-02-09 09:33 | CT ---
EXAMINATION TYPE: CT brain w con DATE OF EXAM: 02/09/2023 COMPARISON: None HISTORY: Vertigo, Transient alteration of awareness CT DLP: 1278 mGycm Automated exposure control for dose reduction was used. CONTRAST: CT scan of the head is performed with IV Contrast, patient injected with 100 ml mL of Isovue 300. FINDINGS: A mild generalized degenerative change with no midline shift or mass effect. No acute hemorrhage. No cerebellopontine angle mass. There is an enhancing soft tissue nodule along the posterior right occip ut measuring 1.8 cm. Orbits are symmetric. Sinuses are clear. Craniocervical junction is maintained. Sella turcica is norm al. IMPRESSION: 1. No evidence of cerebellopontine angle mass. 2. Degenerative change. 3. There is a 1.8 cm enhancing soft tissue mass in the subcutaneous tissues of the right posterior oc ciput. Recommend correlation with ultrasound.
== END | disposition home or self-care (01) ==
LOC: RADCTMAIN 07:14
PROVIDERS: ATTEND Otolaryngology
DX: G93.89 Other specified disorders of brain (principal); R40.0 Somnolence; R42 Dizziness and giddiness; R22.0 Localized swelling, mass and lump, head
CPT/HCPCS: 70460; Q9967

== ENCOUNTER → 2023-10-11 | Outpatient (CLI) | payer MEDICAID ==
--- NOTE | 2023-10-13 07:48 | CT ---
EXAMINATION TYPE: CT iac wo con DATE OF EXAM: 10/11/2023 COMPARISON: CT brain February 09, 2023 HISTORY: tinnitus CT DLP: 150 mGycm. Automated Exposure Control for Dose Reduction was Utilized. TECHNIQUE: CT scan of internal auditory canal is performed without contrast, thin cut axial images ar e obtained, coronal reformatted images are also reviewed. FINDINGS: The external auditory canals are patent bilaterally. Mastoid air cells show no evidence of abnormal opacification bilaterally. The middle ear ossicles are symmetric and unremarkable. There is no evidence of suspicious surroundi ng soft tissue density to suggest cholesteatoma. The scutum is preserved bilaterally. The cochlea and the semicircular canals are symmetric and unremarkable. Bony covering of the superior semicircular canal is present bilaterally. Vestibular aqueduct and internal carotid canal appear unr emarkable. Temporomandibular joints are maintained bilaterally. Visualized paranasal sinuses are grossly clear. Visualized portion brain parenchyma is felt within normal limits. Persistent oval hyperdense 2.3 x 1 .2 cm lesion in the right posterior subcutaneous tissue at level of the cerebellum axial image 26. Ad vise follow-up if it has not been performed as was present on prior study. It is stable or slightly l arger versus prior. IMPRESSION: No significant abnormality seen to account for patient's symptoms.
== END | disposition home or self-care (01) ==
LOC: RADCTMAIN 08:05
PROVIDERS: ATTEND Otolaryngology
DX: H83.8X3 Other specified diseases of inner ear, bilateral (principal); H93.11 Tinnitus, right ear
CPT/HCPCS: 70480

== ENCOUNTER → 2024-12-29 | Outpatient (CLI) | payer BC ==
--- NOTE | 2024-12-29 21:16 | MR ---
EXAMINATION TYPE: MR cervical spine wo con DATE OF EXAM: 12/29/2024 9:00 PM COMPARISON: None. 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 IV Contrast: mL (None, if empty) FINDINGS: The craniovertebral junction is normal. Vertebral body alignment is normal. C7-T1: No focal disc herniation or significant disc bulge is evident. No spinal canal stenosis or n eural foraminal stenosis is present. C6-7: Broad-based disc bulge is present with anterior thecal sac flattening. No cord contact is evide nt. No spinal canal stenosis is present. Uncovertebral joint hypertrophy contributing to bilateral fo raminal narrowing.. C5-6: There is a central disc herniation with disc extension into the left paracentral direction. Mil d anterior thecal sac compression is present. No cord contact is evident. There may be cord deformity . Neural foramen are patent C4-5: No focal disc herniation or significant disc bulge is evident. No spinal canal stenosis. Some right foraminal narrowing from uncovertebral joint hypertrophy is present C3-4: No focal disc herniation or significant disc bulge is evident. No spinal canal stenosis. Some right foraminal narrowing from uncovertebral joint hypertrophy is present C2-3: No focal disc herniation or significant disc bulge is evident. No spinal canal stenosis or vandana ral foraminal stenosis is present. IMPRESSION: 1. Disc bulging C6-7 with moderate anterior thecal sac compression. 2. Small central disc herniation with disc bulging extending into the left paracentral region has mod erate anterior thecal sac compression. Some mild cord deformity may be present. 3. Right Foraminal narrowing from uncovertebral joint hypertrophy discussed above [facility], , 12/29/2024 9:14 PM
== END | disposition home or self-care (01) ==
LOC: RADMRIMAIN 20:15
PROVIDERS: ATTEND Family Medicine
DX: M50.023 Cervical disc disorder at C6-C7 level with myelopathy (principal); M47.12 Other spondylosis with myelopathy, cervical region
CPT/HCPCS: 72141

== ENCOUNTER → 2025-03-16 | Outpatient (CLI) | payer BC ==
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
== END | disposition home or self-care (01) ==
LOC: RADMRIMAIN 21:30
PROVIDERS: ATTEND Psychiatry & Neurology Neurology
DX: H81.391 Other peripheral vertigo, right ear (principal); H93.11 Tinnitus, right ear; R90.82 White matter disease, unspecified
CPT/HCPCS: 70553; A9585